=== PATIENT | male | born 2000 | race Caucasian/White ===

== ENCOUNTER 2022-06-07 10:10 | Emergency (ER) | payer OTHER, SELFPAY ==
[2022-06-07 10:22] VITALS: BP 110/67; PULSE 86; RESP 20; TEMP 37; O2SAT 100
--- NOTE | 2022-06-07 10:35 | ED.SKABFB ---
HPI - Skin/Abscess/Foreign Bdy General Chief complaint: Skin/Abscess/Foreign Body Stated complaint: rash Time Seen by Provider: 06/07/22 10:35 Source: patient Mode of arrival: ambulatory Limitations: no limitations History of Present Illness HPI narrative: 22-year-old male presented for complaint of a bruise to the left forearm first noted 3 days ago, denies injury. In addition, a mild rash to both forearms and the tops of both feet for about 2 days. Endorses the rash is itching. Denies pain or drainage to the rash lesions. Patient took a Benadryl today. Takes Zyrtec daily. Denies lip, tongue, throat swelling or itching, difficulty breathing. MD complaint: rash Related Data Allergies Allergy/AdvReac Type Severity Reaction Status Date / Time No Known Allergies Allergy Verified 06/07/22 10:40 Review of Systems Review of Systems: CONSTITUTIONAL: Denies body aches, fever, chills, or sweats. EYES: Denies visual changes, swelling or discharge. ENT: Denies rhinorrhea, congestion, sore throat CARDIOVASCULAR: Denies chest pain, palpitations, or edema. RESPIRATORY: Denies dyspnea. GASTROINTESTINAL: Denies abdominal pain, nausea, vomiting, or diarrhea. SKIN: rash, itching, bruising MUSCULOSKELETAL: Denies back pain, joint pain, or myalgia. NEUROLOGIC: Denies headache, numbness or tingling PMFSH Comments At time of signature, I have reviewed and agree with nursing past medical, surgical, social and family history unless otherwise noted. Please see nursing chart for further information. There is no relevant family history pertinent to the presenting complaint Exam Narrative: GENERAL: Well-appearing EYES: PERRLA, conjunctivae clear, and EOMI. No swelling ENT: Mucous membranes moist. Oropharynx without edema, erythema or lesions. CHEST: Clear to auscultation. HEART: Regular rate and rhythm. SKIN: Warm, dry. Pale pink macular rash to bilateral forearms and dorsal aspect of both feet; contusion to LFA approx [id number], nontender, no swelling, cap refill <3seconds. peripheral pulses palpable. NEURO: Alert and oriented x3. PSYCH: Normal mood and affect Course Course Emergency Course: Patient is aware of diagnosis, understands and agrees to treatment plan. Anticipatory guidance given. Patient agrees to follow-up as directed and is aware of reasons to seek care at the emergency department. Portions of this record may have been created with voice recognition software Level of Care: Express Care Visit Vital Signs Vital signs: Vital Signs Temperature 98.6 F 06/07/22 10:22 Pulse Rate 86 06/07/22 10:22 Respiratory Rate 20 06/07/22 10:22 Blood Pressure 110/67 06/07/22 10:22 Pulse Oximetry 100 06/07/22 10:22 Oxygen Delivery Room Air 06/07/22 10:22 Temperature 98.6 F 06/07/22 10:22 Pulse Rate 86 06/07/22 10:22 Respiratory Rate 20 06/07/22 10:22 Blood Pressure 110/67 06/07/22 10:22 Pulse Oximetry 100 06/07/22 10:22 Oxygen Delivery Room Air 06/07/22 10:22 Reviewed MDM - Skin/Abscess/Foreign Bdy MDM Narrative Medical decision making narrative: Advised supportive measures and signs/symptoms to go to the ER. Instructed patient to go to nearest ER immediately for any worsening symptoms including but not limited to: fever, spreading rash, pain, sore throat, headache, dizziness, chest pain, trouble breathing, or any symptoms concerning to the patient.Pt is appropriate for outpt treatment and f/u. Differential Diagnosis Differential diagnosis: Likely abscess of skin or subcutaneous tissue, urticaria, herpes zoster, cellulitis, contact dermatitis and other (contusion) Discharge Plan Discharge Clinical Impression: Dermatitis Contusion of forearm Qualifiers: Encounter type: initial encounter Laterality: left Qualified Code(s): S50.12XA - Contusion of left forearm, initial encounter Patient Disposition: Home, Self-Care Condition: Stable Instructions: Contusion in Adults (
== END 2022-06-07 10:48 | disposition home or self-care (01) ==
PROVIDERS: Emergency Provider Nurse Practitioner Family; PCP Pediatrics
DX: L30.9 Dermatitis, unspecified (principal); S50.12XA Contusion of left forearm, initial encounter; X58.XXXA Exposure to other specified factors, initial encounter; Z86.16 Personal history of COVID-19
CPT/HCPCS: 99203; G0463